=== PATIENT | female | born 1985 | race Caucasian/White ===

== ENCOUNTER 2020-11-30 05:52 | Emergency (ER) | payer OTHER ==
[2020-11-30 06:38] LABS: HEMOGLOBIN 14.7 gm/dl (12.3-15.3); RED BLOOD COUNT 4.59 M/UL (4.00-5.10); WHITE BLOOD COUNT 7.2 K/UL (4.5-11.0)
[2020-11-30 07:24] LABS: BUN/CREATININE RATIO 18 (0-10)
[2021-01-16] MEDS ORDERED: MIRALAX17 GM PO (08:24)
[2021-01-16] MEDS ORDERED: NURTEC ODT75 MG SL (08:26)
[2021-01-16] MEDS ORDERED: VOLTAREN ARTHRI20 GM TOP (08:29)
[2021-01-16] MEDS ORDERED: TOPAMAX25 MG PO (08:30)
[2021-01-16] MEDS ORDERED: IBU400 MG PO (08:31)
[2021-01-16] MEDS ORDERED: LISINOPRIL-HCT1 EAC1 PO (08:32)
== END 2020-11-30 09:48 | disposition home or self-care (01) ==
LOC: ER1 05:52
PROVIDERS: Family Medicine
DX: R07.2 Precordial pain (principal); I10 Essential (primary) hypertension; Z88.2 Allergy status to sulfonamides; Z79.899 Other long term (current) drug therapy; F17.200 Nicotine dependence, unspecified, uncomplicated
CPT/HCPCS: 71045; 80053; 82550; 82553; 83874; 84484; 85025; 85379; 93005; 99285

== ENCOUNTER → 2021-01-16 | Outpatient (CLI) | payer OTHER ==
[~2021-01-16] MED LIST: AUGMENTIN 875-1 EACH PO; CIPRO500 MG PO; FERROUS SULFAT325 M2 PO; FLAGYL500 MG PO; HYDROCODON-ACE1 EAC6 PO; IBU400 MG PO; IBUPROFEN800 MG PO; LISINOPRIL-HCT1 EAC1 PO; MELATONIN10 M2 PO; MIRALAX17 GM PO; NURTEC ODT75 MG SL; PERCOCET 5/325 T1 EA PO; PHENERGAN 25 MG25 M1 PO; POTASSIUM99 M1 PO; SOF-LAX100 MG PO; TOPAMAX25 MG PO; VITAMIN B-121000 MC3 PO; VOLTAREN ARTHRI20 GM TOP
[2021-01-16 08:51] LABS: HEMOGLOBIN 14.2 gm/dl (12.3-15.3); RED BLOOD COUNT 4.45 M/UL (4.00-5.10); WHITE BLOOD COUNT 6.9 K/UL (4.5-11.0)
[2021-01-16 09:21] LABS: BUN/CREATININE RATIO 15 (0-10)
== END ==
LOC: OPSV2 07:30
PROVIDERS: Obstetrics & Gynecology
DX: Z01.812 Encounter for preprocedural laboratory examination (principal); N92.0 Excessive and frequent menstruation with regular cycle
CPT/HCPCS: 36415; 80053; 81001; 85025

== ENCOUNTER 2021-01-25 10:31 | Day surgery (SDC) | payer OTHER ==
[~2021-01-25] VITALS: Ht 172.7 cm; Wt 88.5 kg
[~2021-01-25 10:31] MED LIST changes: -AUGMENTIN 875-1 EACH PO; -CIPRO500 MG PO; -FERROUS SULFAT325 M2 PO; -FLAGYL500 MG PO; -HYDROCODON-ACE1 EAC6 PO; -IBUPROFEN800 MG PO; -MELATONIN10 M2 PO; -PERCOCET 5/325 T1 EA PO; -PHENERGAN 25 MG25 M1 PO; -POTASSIUM99 M1 PO; -SOF-LAX100 MG PO; -VITAMIN B-121000 MC3 PO
[2021-01-25] MEDS ORDERED: SOF-LAX100 MG PO (15:38)
[2021-01-25] MEDS ORDERED: IBUPROFEN800 MG PO (15:38)
[2021-01-25] MEDS ORDERED: PERCOCET 5/325 T1 EA PO (15:38)
[2021-01-26] MEDS ORDERED: PHENERGAN 25 MG25 M1 PO (12:42)
[2021-01-26 13:18] LABS: HEMOGLOBIN 11.1 gm/dl (12.3-15.3)
== END 2021-01-26 14:34 | disposition home or self-care (01) ==
LOC: OR 10:31 → MED SURG 4 16:24 → OR 16:24 → MED SURG 4 01-26 14:34 → OR 01-26 14:34
PROVIDERS: Obstetrics & Gynecology
DX: D25.1 Intramural leiomyoma of uterus (principal); N72 Inflammatory disease of cervix uteri; N80.0 Endometriosis of uterus; N39.3 Stress incontinence (female) (male); I10 Essential (primary) hypertension; G43.109 Migraine with aura, not intractable, without status migrainosus; Z79.899 Other long term (current) drug therapy; Z88.2 Allergy status to sulfonamides; F17.210 Nicotine dependence, cigarettes, uncomplicated
CPT/HCPCS: 36415; 85014; 85018; G0378; J0690; J1100; J1170; J1885; J2001; J2250; J2270; J2405; J2550; J2704; J2710; J3010; J7120

== ENCOUNTER 2021-02-03 19:17 | Observation (INO) | payer OTHER ==
[~2021-02-03] VITALS: Ht 172.7 cm; Wt 80.7 kg
[~2021-02-03 19:17] MED LIST changes: +IBUPROFEN800 MG PO; +PERCOCET 5/325 T1 EA PO; +PHENERGAN 25 MG25 M1 PO; +SOF-LAX100 MG PO
[2021-02-04 03:19] LABS: HEMOGLOBIN 9.6 gm/dl (12.3-15.3); RED BLOOD COUNT 3.05 M/UL (4.00-5.10); WHITE BLOOD COUNT 6.4 K/UL (4.5-11.0)
[2021-02-05 07:42] LABS: HEMOGLOBIN 9.3 gm/dl (12.3-15.3); RED BLOOD COUNT 3.1 M/UL (4.00-5.10)
[2021-02-05 07:44] LABS: WHITE BLOOD COUNT 9.1 K/UL (4.5-11.0)
[2021-02-05] MEDS ORDERED: FERROUS SULFAT325 M2 PO (12:32)
[2021-02-05] MEDS ORDERED: AUGMENTIN 875-1 EACH PO (12:32)
== END 2021-02-05 13:30 | disposition home or self-care (01) ==
LOC: MED SURG 4 21:38
PROVIDERS: ADMIT Obstetrics & Gynecology
DX: N99.840 Postprocedural hematoma of a genitourinary system organ or structure following a genitourinary system procedure (principal); Z90.710 Acquired absence of both cervix and uterus; I10 Essential (primary) hypertension; Z98.51 Tubal ligation status
CPT/HCPCS: 36415; 81001; 85025; 85027; 87086; G0378; G0379; J2543

== ENCOUNTER 2021-02-08 14:33 | Inpatient (IN) | payer OTHER ==
[~2021-02-08] VITALS: Ht 172.7 cm; Wt 80.8 kg
[~2021-02-08 14:33] MED LIST changes: +AUGMENTIN 875-1 EACH PO; +FERROUS SULFAT325 M2 PO
[2021-02-08 17:14] LABS: HEMOGLOBIN 9.9 gm/dl (12.3-15.3); RED BLOOD COUNT 3.24 M/UL (4.00-5.10); WHITE BLOOD COUNT 11.4 K/UL (4.5-11.0)
[2021-02-08 17:22] LABS: BUN/CREATININE RATIO 10 (0-10)
[2021-02-08] MEDS ORDERED: VITAMIN B-121000 MC3 PO (17:27)
[2021-02-08] MEDS ORDERED: POTASSIUM99 M1 PO (17:28)
[2021-02-08] MEDS ORDERED: MELATONIN10 M2 PO (17:29)
--- NOTE | 2021-02-08 17:36 | NUR ---
CONTACTED DR. SANTOS REGARDING PATIENT'S REQUEST FOR PAIN MEDICATION OTHER THAN MOTRIN. NEW ORDER FOR NORCO NOTED AND ENTERED.
[2021-02-10 02:59] LABS: HEMOGLOBIN 10.1 gm/dl (12.3-15.3); RED BLOOD COUNT 3.36 M/UL (4.00-5.10); WHITE BLOOD COUNT 9.8 K/UL (4.5-11.0)
[2021-02-10 03:12] LABS: BUN/CREATININE RATIO 11 (0-10)
[2021-02-12 04:39] LABS: HEMOGLOBIN 10.3 gm/dl (12.3-15.3)
--- NOTE | 2021-02-12 06:22 | NUR ---
0600- DISCONTINUED LR @ 150ML DUE TO PATIENT HAVING MINIMAL BLOOD AND ADEQUATE URINE OUTPUT. DISCONTINUED THE PATIENT'S VEGA CATHETER AND REMOVED DRESSING FROM SURGICAL SITE, THE GUAZE DRAIN PADS AROUND THE MELONY DRAIN SITES WAS SATURATED, REPLACED WITH STERILE GAUZE DRAIN PADS AND USED SOFT ROLL TAPE TO TAPE UP TUBING TO MELONY DRAINS TO KEEP THEM FROM HANGING FREELY WHEN THE PATIENT AMBULATES.
[2021-02-12] MEDS ORDERED: CIPRO500 MG PO (10:55)
[2021-02-12] MEDS ORDERED: FLAGYL500 MG PO (10:55)
[2021-02-12] MEDS ORDERED: HYDROCODON-ACE1 EAC6 PO (10:55)
--- NOTE | 2021-02-13 11:02 | NUR ---
INSTRUCTED MEDS SENT TO PHARMACY. TAKE DIRECTED FOLLOW UP APPOINTMENT MADE WITH REFUGIO ARCINIEGA, VERBALIZED UNDERSTANDING JOSE PARDO R.N.
== END 2021-02-13 11:14 | disposition home or self-care (01) | DRG 908 ==
LOC: MED SURG 4 14:33 → UNDOADMOB 14:33 → MED SURG 4 02-10 11:16
PROVIDERS: Obstetrics & Gynecology; ADMIT Obstetrics & Gynecology
PROC: 0UT50ZZ Resection of Right Fallopian Tube, Open Approach (ICD-10-PCS; 2021-02-11)
PROC: 0UT00ZZ Resection of Right Ovary, Open Approach (ICD-10-PCS; 2021-02-11)
PROC: 0W9J00Z Drainage of Pelvic Cavity with Drainage Device, Open Approach (ICD-10-PCS; principal; 2021-02-11 09:22)
DX: N99.840 Postprocedural hematoma of a genitourinary system organ or structure following a genitourinary system procedure (principal); T81.49XA Infection following a procedure, other surgical site, initial encounter; Y83.8 Other surgical procedures as the cause of abnormal reaction of the patient, or of later complication, without mention of misadventure at the time of the procedure; N76.0 Acute vaginitis; Z20.822 Contact with and (suspected) exposure to COVID-19; I10 Essential (primary) hypertension; G43.909 Migraine, unspecified, not intractable, without status migrainosus; K66.0 Peritoneal adhesions (postprocedural) (postinfection); Z88.2 Allergy status to sulfonamides
CPT/HCPCS: 36415; 80053; 81001; 85014; 85018; 85025; 86850; 86900; 86901; 87070; 87205; 96372; 96374; 96375; 96376; G0378; G0379; J0690; J1170; J1650; J1956; J2001; J2250; J2270; J2405; J2543; J2704; J3010; J7120; U0002

== ENCOUNTER → 2021-06-07 | Outpatient (CLI) | payer OTHER ==
[~2021-06-07] MED LIST changes: +CIPRO500 MG PO; +FLAGYL500 MG PO; +HYDROCODON-ACE1 EAC6 PO; +MELATONIN10 M2 PO; +POTASSIUM99 M1 PO; +VITAMIN B-121000 MC3 PO
== END ==
LOC: EXRD 15:16
DX: M79.641 Pain in right hand (principal); M79.642 Pain in left hand
CPT/HCPCS: 73130